=== PATIENT | male | born 1990 | race Caucasian/White ===

== ENCOUNTER → 2020-07-02 | Outpatient (CLI) | payer OTHER | LOC: KOH-I 11:41 | DX: M25.521 Pain in right elbow (principal); M79.89 Other specified soft tissue disorders; W00.0XXA Fall on same level due to ice and snow, initial encounter | CPT/HCPCS: 73080; 73090 ==

== ENCOUNTER → 2020-12-12 | Outpatient (CLI) | payer OTHER | LOC: EMI 13:57 | DX: M89.8X6 Other specified disorders of bone, lower leg (principal) | CPT/HCPCS: 73720; A9577 ==

== ENCOUNTER → 2021-06-02 | Outpatient (CLI) | payer OTHER | LOC: RAD 18:56 | DX: B97.21 SARS-associated coronavirus as the cause of diseases classified elsewhere (principal) | CPT/HCPCS: 71046 ==

== ENCOUNTER → 2021-09-10 | Outpatient (CLI) | payer OTHER | LOC: KOH-I 09-02 15:30 | DX: R41.0 Disorientation, unspecified (principal) | CPT/HCPCS: 70450 ==